=== PATIENT | female | born 1970 | race American Indian/Alaskan Native ===

== ENCOUNTER 2018-09-03 11:40 | Emergency (ER) | payer OTHER ==
[2018-09-03] MEDS ORDERED: IBUPROFEN PO ONE (11:55)
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
--- NOTE | 2018-09-03 12:32 | XRay Report ---
AP AND LATERAL CERVICAL SPINE: History: Pain. Moderate degenerative disc disease with circumferential spurring is identified at C4-5 and C5-6. The remaining disc levels are within normal limits. The facet joints are unremarkable. There is normal height and alignment of vertebral bodies. No fracture, subluxation or bone lesion is identified. IMPRESSION: Moderate degenerative disc disease at C4-5 and C5-6.
[2018-09-03] MEDS ORDERED: ROBAXIN PO ONE (12:50)
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
[2018-09-03 14:04] VITALS: BP 143/66
== END 2018-09-03 13:40 | disposition home or self-care (01) ==
LOC: ED 11:40
DX: S10.93XA Contusion of unspecified part of neck, initial encounter (principal); J45.909 Unspecified asthma, uncomplicated; Z88.0 Allergy status to penicillin; Y08.89XA Assault by other specified means, initial encounter; Y93.89 Activity, other specified; Y92.89 Other specified places as the place of occurrence of the external cause; Y99.8 Other external cause status
CPT/HCPCS: 72040